=== PATIENT | male | born 1940 | race Caucasian/White ===

== ENCOUNTER 2016-02-25 09:05 | Outpatient (CLI) | payer MEDICARE, OTHER ==
[2016-02-25 09:45] LABS: Anion Gap 12 mmol/L (10-20); BUN (Urea Nitrogen) 24 mg/dL (8.4-25.7); Calc. Creatinine Clearance 0 mL/min (70-130); Calcium 9.5 mg/dL (7.8-10.44); Carbon Dioxide 24 mmol/L (23-31); Chloride 108 mmol/L (98-107); Estimated GFR-MDRD 52
== END 2016-02-25 09:06 | disposition home or self-care (01) ==
LOC: BURLAB 09:05
PROVIDERS: ATTEND Internal Medicine Cardiovascular Disease
DX: E11.65 Type 2 diabetes mellitus with hyperglycemia (principal); I12.9 Hypertensive chronic kidney disease with stage 1 through stage 4 chronic kidney disease, or unspecified chronic kidney disease; N18.9 Chronic kidney disease, unspecified
CPT/HCPCS: 36415; 80048

== ENCOUNTER 2016-04-24 08:15 | Outpatient (CLI) | payer MEDICARE, OTHER ==
[2016-04-24 09:26] LABS: Anion Gap 13 mmol/L (10-20); BUN (Urea Nitrogen) 18 mg/dL (8.4-25.7); Calc. Creatinine Clearance 0 mL/min (70-130); Calcium 9.5 mg/dL (7.8-10.44); Carbon Dioxide 27 mmol/L (23-31); Chloride 108 mmol/L (98-107); Estimated GFR-MDRD 65
== END 2016-04-24 08:16 | disposition home or self-care (01) ==
LOC: BURLAB 08:15
PROVIDERS: ATTEND Internal Medicine Cardiovascular Disease
DX: R60.9 Edema, unspecified (principal); R07.89 Other chest pain
CPT/HCPCS: 36415; 80048

== ENCOUNTER 2016-06-27 08:29 | Outpatient (CLI) | payer MEDICARE, OTHER ==
[2016-06-27 09:36] LABS: ALT (SGPT) 35 U/L (8-55); AST (SGOT) 24 U/L (5-34); Albumin 4.2 g/dL (3.4-4.8); Alkaline Phosphatase 88 U/L (40-150); Anion Gap 12 mmol/L (10-20); BUN (Urea Nitrogen) 24 mg/dL (8.4-25.7); Bilirubin, Total 0.4 mg/dL (0.2-1.2); Calc. Creatinine Clearance 0 mL/min (70-130); Calcium 9.4 mg/dL (7.8-10.44); Carbon Dioxide 25 mmol/L (23-31); Cardiac Risk 3.7 (Less than 4.5); Chloride 108 mmol/L (98-107); Cholesterol 85 mg/dL (< 200 Desired); Estimated GFR-MDRD 45; Globulin 2.7 g/dL (2.4-3.5); Glucose 372 mg/dL (83-110); HDL Cholesterol 23 mg/dL (>60 Neg Risk); LDL Cholesterol, Calculated 39 mg/dL; Potassium 4.2 mmol/L (3.5-5.1); Protein, Total 6.9 g/dL (5.8-8.1); Sodium 141 mmol/L (136-145); Triglycerides 116 mg/dL (Less than 150)
[2016-06-27 09:44] LABS: Hemoglobin A1c 8.3 % (4.0-6.0)
[2016-06-27 09:52] LABS: PSA-Asymptomatic (SCREENING) 2.42 ng/mL (0-4.0)
[2016-06-27 11:31] LABS: Hemoglobin 12.9 g/dL (14.0-18.0); Lymphocytes 26 % (21-51); MDiff Complete? YES; Mean Corpuscular HGB CONC 33.8 g/dL (32.0-36.0); Mean Corpuscular Hemoglobin 30.1 pg (27.0-31.0); Mean Platelet Volume 9.7 fL (7.4-10.4); Monocytes 19 % (0-10); Neutrophil 55 % (42-75); PLT Morphology Comment Appears Decreased; Platelet Count 68 thou/uL (130-400); RBC Distribution Width 13.8 % (11.5-14.5); Red Blood Cell (RBC) Count 4.29 mill/uL (4.70-6.10); White Blood Cell (WBC) Count 6.9 thou/uL (4.8-10.8)
[2016-06-27 18:10] LABS: Creatinine, Urine 71.51 mg/dL (63-166); Microalbumin Urine 29.7 mg/dL (0.5-50.0); Microalbumin/Creat Ratio 415.3 mg/g (Less than 30)
== END 2016-06-27 08:30 | disposition home or self-care (01) ==
LOC: BURLAB 08:29
PROVIDERS: ATTEND Internal Medicine Endocrinology, Diabetes & Metabolism
DX: E78.2 Mixed hyperlipidemia (principal); E03.9 Hypothyroidism, unspecified; E29.1 Testicular hypofunction; E11.40 Type 2 diabetes mellitus with diabetic neuropathy, unspecified; N42.9 Disorder of prostate, unspecified
CPT/HCPCS: 36415; 80053; 80061; 82043; 82672; 83036; 84403; 84439; 84443; 85025; G0103

== ENCOUNTER 2016-10-13 09:23 | Outpatient (CLI) | payer MEDICARE, OTHER ==
[2016-10-13 10:15] LABS: Hemoglobin A1c 8.5 % (4.0-6.0)
[2016-10-13 10:26] LABS: ALT (SGPT) 49 U/L (8-55); AST (SGOT) 29 U/L (5-34); Alkaline Phosphatase 102 U/L (40-150); Anion Gap 12 mmol/L (10-20); BUN (Urea Nitrogen) 17 mg/dL (8.4-25.7); Bilirubin, Direct 0.3 mg/dL (0.1-0.3); Bilirubin, Total 0.5 mg/dL (0.2-1.2); Calc. Creatinine Clearance 0 mL/min (70-130); Calcium 9.3 mg/dL (7.8-10.44); Carbon Dioxide 25 mmol/L (23-31); Cardiac Risk 4.4 (Less than 4.5); Chloride 109 mmol/L (98-107); Cholesterol 70 mg/dl (< 200 Desired); Estimated GFR-MDRD 57; Glucose 100 mg/dL (83-110); HDL Cholesterol 16 mg/dL (>60 Neg Risk); LDL Cholesterol, Calculated 34 mg/dL; Potassium 3.8 mmol/L (3.5-5.1); Protein, Total 6.2 g/dL (5.8-8.1); Sodium 142 mmol/L (136-145); Triglycerides 99 mg/dL (Less than 150)
[2016-10-13 10:33] LABS: Hemoglobin 12.3 g/dL (14.0-18.0); Mean Corpuscular HGB CONC 34.6 g/dL (32.0-36.0); Mean Corpuscular Volume 89.5 fl (80.0-94.0); Mean Platelet Volume 10.1 fL (7.4-10.4); Platelet Count 94 thou/uL (130-400); RBC Distribution Width 12.5 % (11.5-14.5); Red Blood Cell (RBC) Count 3.97 mill/uL (4.70-6.10)
[2016-10-13 10:42] LABS: Free T4 (Free Thyroxine) 0.97 ng/dL (0.70-1.48); Thyroid Stimulating Hormone 1.6297 uIU/mL (0.35-4.94); Vitamin D, 25 Hydroxy 23.3 ng/ml (> 30.0)
== END 2016-10-13 09:24 | disposition home or self-care (01) ==
LOC: BURLAB 09:23
PROVIDERS: ATTEND Internal Medicine
DX: Z12.5 Encounter for screening for malignant neoplasm of prostate (principal); D64.9 Anemia, unspecified; E03.9 Hypothyroidism, unspecified; I10 Essential (primary) hypertension; E11.9 Type 2 diabetes mellitus without complications; E53.8 Deficiency of other specified B group vitamins; E78.00 Pure hypercholesterolemia, unspecified; E55.9 Vitamin D deficiency, unspecified; Z79.899 Other long term (current) drug therapy
CPT/HCPCS: 36415; 80048; 80061; 80076; 82306; 82607; 83036; 84439; 84443; 85027

== ENCOUNTER 2016-11-10 08:54 | Outpatient (CLI) | payer MEDICARE, OTHER | END 2016-11-10 08:55 | disposition home or self-care (01) | LOC: BURLAB 08:54 | PROVIDERS: ATTEND Internal Medicine Gastroenterology | DX: K52.9 Noninfective gastroenteritis and colitis, unspecified (principal) | CPT/HCPCS: 83630; 87015; 87045; 87046; 87177; 87324; 87449; 87899 ==

== ENCOUNTER 2016-12-25 09:22 | Emergency (ER) | payer MEDICARE, OTHER ==
[2016-12-25] MEDS ORDERED: Adacel (T-DAP) 0.5 ML VIAL ONE (09:40)
== END 2016-12-25 09:49 | disposition home or self-care (01) ==
LOC: BURERS 09:22
DX: S60.451A Superficial foreign body of left index finger, initial encounter (principal); I25.10 Atherosclerotic heart disease of native coronary artery without angina pectoris; E11.9 Type 2 diabetes mellitus without complications; I10 Essential (primary) hypertension; Z87.891 Personal history of nicotine dependence; Z79.4 Long term (current) use of insulin; W45.8XXA Other foreign body or object entering through skin, initial encounter
CPT/HCPCS: 10120; 90471; 90715; J2001

== ENCOUNTER 2019-04-01 11:10 | Outpatient (CLI) | payer MEDICARE, OTHER ==
--- NOTE | 2019-04-01 16:44 | RAD ---
ABDOMEN: 04/01/19 Supine views show at least two calcifications in the left upper quadrant and/or overlying the left ki dney. The largest measures 2.2 cm in length. A smaller one is present nearby. A small subcentimter calcification may be present in the right kidney. The abdominal gas pattern is normal with no distension of bowel. IMPRESSION: Upper quadrant calcifications; presumably renal calculi POS: HOME
== END 2019-04-01 11:11 | disposition home or self-care (01) ==
LOC: BURRAD 11:10
PROVIDERS: ATTEND Urology
DX: N20.0 Calculus of kidney (principal); R93.5 Abnormal findings on diagnostic imaging of other abdominal regions, including retroperitoneum
CPT/HCPCS: 74018

== ENCOUNTER 2021-01-19 10:41 | Outpatient (CLI) | payer MEDICARE, OTHER | END 2021-01-19 10:42 | disposition home or self-care (01) | LOC: BURLAB 10:41 | PROVIDERS: ATTEND Urology | DX: N40.1 Benign prostatic hyperplasia with lower urinary tract symptoms (principal) | CPT/HCPCS: 36415; 84153 ==

== ENCOUNTER 2022-01-21 16:39 | Outpatient (CLI) | payer MEDICARE, OTHER | END 2022-01-21 16:40 | disposition home or self-care (01) | LOC: BURRAD 16:39 | PROVIDERS: ATTEND Urology | DX: J90 Pleural effusion, not elsewhere classified (principal); J92.9 Pleural plaque without asbestos | CPT/HCPCS: 36415; 71045; 84153 ==

== ENCOUNTER 2022-04-20 00:51 | Emergency (ER) | payer OTHER, MEDICARE | END 2022-04-20 01:34 | disposition home or self-care (01) | LOC: BURERS 00:51 | DX: S81.812A Laceration without foreign body, left lower leg, initial encounter (principal); I11.0 Hypertensive heart disease with heart failure; I50.9 Heart failure, unspecified; E11.9 Type 2 diabetes mellitus without complications; Z79.01 Long term (current) use of anticoagulants; Z79.899 Other long term (current) drug therapy; Z79.82 Long term (current) use of aspirin; Z79.4 Long term (current) use of insulin; W01.0XXA Fall on same level from slipping, tripping and stumbling without subsequent striking against object, initial encounter | CPT/HCPCS: 99283 ==